=== PATIENT | female | born 1940 | race Caucasian/White ===

== ENCOUNTER 2022-11-23 17:26 | Emergency (ER) | payer MEDICARE, SELFPAY ==
[2022-11-23 17:29] VITALS: BP 143/88; PULSE 68; RESP 18; TEMP 36.7; O2SAT 96; BMI 24.5
--- NOTE | 2022-11-23 17:52 | USR_ITS ---
PROCEDURE INFORMATION: Exam: US Duplex Right Lower Extremity Veins, Limited Exam date and time: 11/23/2022 6:12 PM Age: 82 years old Clinical indication: Pain; Leg, lower; Right; Additional info: Pain and swelling TECHNIQUE: Imaging protocol: Real-time duplex ultrasound of the right extremity with 2-D buenrostro scale, color Doppler flow and spectral waveform analysis including responses to compression and other maneuvers (when performed) with image documentation. Limited exam was focused on the right lower extremity veins. COMPARISON: No relevant prior studies available. FINDINGS: Right deep veins: Unremarkable. The common femoral, femoral, proximal profunda femoral, popliteal, posterior tibial and peroneal veins are patent without thrombus. Normal Doppler waveforms. Normal compressibility and/or augmentation response. Superficial veins: Unremarkable. Saphenofemoral junction is patent without thrombus. Soft tissues: Unremarkable. US/[place] [id number] IMPRESSION: No sonographic evidence of deep vein thrombosis.
[2022-11-23 18:03] LABS: Basophils % 0.5 %; Eosinophils # 0.4 10^3/uL (0.0-0.8); Eosinophils % 4.6 %; Hematocrit 38.9 % (36-47); Lymphocytes # 1.7 10^3/uL (0.8-4.8); Lymphocytes % 22.7 %; Mean Corpuscular HGB Conc 31.6 g/dL (30-55); Mean Corpuscular Hemoglobin 28.5 pg (27-33); Mean Platelet Volume 10.2 fL (7.4-10.4); Monocytes # 0.9 10^3/uL (0.2-0.9); Monocytes % 11.7 %; Neutrophils # 4.57 10^3/uL (1.8-7.7); Neutrophils % 60.2 %; Nucleated Red Blood Cells % 0 %; Platelet Count 260 10^3/cmm (157-399); Red Blood Count 4.32 10^6/uL (3.85-5.65); Red Cell Distribution Width 14.9 % (12.1-15.1); White Blood Count 7.59 10^3/uL (3.29-11.43)
--- NOTE | 2022-11-23 18:16 | CTR_ITS ---
PROCEDURE INFORMATION: Exam: CTA Abdominal Aorta and Bilateral Lower Extremities (Run-off) With Contrast Exam date and time: 11/23/2022 6:48 PM Age: 82 years old Clinical indication: Other: Rle swelling; Prior surgery; Surgery date: 6+ months; Surgery type: Bilat tka; Patient HX: Swelling and pain to rle. Negative venous US of rle today. ; Additional info: Right leg pain TECHNIQUE: Imaging protocol: Computed tomographic angiography of the of the abdominal aorta, pelvis and bilateral lower extremities with contrast. 3D rendering (Not supervised by radiologist): MIP and/or 3D reconstructed images were created by the technologist. Radiation optimization: All CT scans at this facility use at least one of these dose optimization techniques: automated exposure control; mA and/or kV adjustment per patient size (includes targeted exams where dose is matched to clinical indication); or iterative reconstruction. Contrast material: OMNI 350; Contrast volume: 100 ml; Contrast route: INTRAVENOUS (IV); REPORTING DATA: Count of CT and Cardiac NM exams in prior 12 months: This patient has received 0 known CTs and 0 known cardiac nuclear medicine studies in the 12 months prior to the current study. COMPARISON: [place] [id number] 11/23/2022 6:12 PM RADIATION DOSE METRICS: Total DLP (mGy-cm): 2425.61 FINDINGS: Aorta: No aortic aneurysm. No aortic dissection. Celiac trunk and mesenteric arteries: No occlusion or significant stenosis. Renal arteries: No occlusion or significant stenosis. Right iliac arteries: No occlusion or significant stenosis. Right femoral/popliteal arteries: No occlusion or significant stenosis, patient is status post total knee arthroplasty at the level of the knee, there are streak artifacts presenting evaluation of the popliteal artery at this level. Right infrapopliteal arteries: No occlusion or significant stenosis. Below the level of the streak artifact, popliteal artery is visualized and there is three-vessel runoff to the foot. Left iliac arteries: No occlusion or significant stenosis. Left femoral/popliteal arteries: No occlusion or significant stenosis. Patient is status post total knee arthroplasty, at the level of the knee, the streak artifacts prevent complete evaluation of the popliteal artery. However, the streak artifacts, the popliteal artery is visualized. Left infrapopliteal arteries: No occlusion or significant stenosis, there is three-vessel runoff to the foot.. Lungs: The visualized lung bases demonstrate bibasal atelectasis. Liver: No mass. Gallbladder and bile ducts: No calcified stones. No ductal dilation. Pancreas: No mass. No ductal dilation. Spleen: Normal. No splenomegaly. Adrenal glands: No mass. Kidneys and ureters: There are multiple renal cortical cysts, the largest on the right measures 18 mm, the largest on the left measures 9.5 mm. Stomach and bowel: The stomach is not distended. There is an extensive amount of feces in the entire colon indicating constipation. Appendix: No evidence of appendicitis. Urinary bladder: Unremarkable. No mass. Reproductive: Unremarkable as visualized. Intraperitoneal space: No free air. No significant fluid collection. Lymph nodes: No lymphadenopathy. Bones/joints: No acute fracture. No dislocation. Soft tissues: Unremarkable. CT/CT angio abd aorta runof [id number] IMPRESSION: 1. No aortic aneurysm dissection. 2. On the right, patent inflow, patent outflow and three-vessel runoff. 3. On the left, patent inflow, patent outflow and three-vessel runoff.
[2022-11-23 18:20] LABS: Alanine Aminotransferase 12 U/L (0-33); Alkaline Phosphatase 64 U/L (35-105); Anion Gap 12.3 (5-19); Aspartate Amino Transferase 18 U/L (0-32); Blood Urea Nitrogen 24 mg/dL (8-23); Carbon Dioxide 27 mmol/L (22-29); Chloride 106 mmol/L (98-107); Globulin 3.1 g/dL (1.3-4.6); Glucose 95 mg/dL (65-115); Osmolality Calculated 296 mOsm/kg (285-295); Potassium 4.3 mmol/L (3.5-5.1); Sodium 141 mmol/L (136-145); Total Bilirubin 0.3 mg/dL (0.15-1.2); Total Protein 7.1 g/dL (6.6-8.7)
[2022-11-23 18:30] VITALS: BP 150/89; PULSE 64; O2SAT 95
[2022-11-23 18:45] LABS: INR 0.93 (0.8-1.2)
[2022-11-23 18:46] LABS: Partial Thromboplastin Time 26.5 SECONDS (23.9-36.7)
[2022-11-23] MEDS: iohexol 350 mg/mL 500 mL Btl (per mL) IV (19:01)
[2022-11-23 19:30] VITALS: BP 173/88; PULSE 65; O2SAT 95
--- NOTE | 2022-11-23 21:17 | XRR_ITS ---
PROCEDURE INFORMATION: Exam: XR Right Tibia and Fibula Exam date and time: 11/23/2022 9:20 PM Age: 82 years old Clinical indication: Pain; Lower leg; Right TECHNIQUE: Imaging protocol: Radiologic exam of the right tibia and fibula. Views: 2 views. COMPARISON: CT angio abd aorta runof [id number] 11/23/2022 6:48 PM FINDINGS: Bones/joints: Patient is status post total knee arthroplasty. The visualized hardware is intact. There are no fractures or dislocations. Soft tissues: There is soft tissue swelling over the lateral malleolus. XR/XR tibia fibula RT 2V [id number] IMPRESSION: No fractures or dislocations.
[2022-11-23] MEDS: ketorolac 30 mg/mL INJ 15 MG IVP (21:58)
--- NOTE | 2022-11-23 22:04 | W.ED.EXTPRO ---
HPI - Extremity Problem General: Chief complaint: Extremity Injury, Lower Stated complaint: Leg swell Time Seen by Provider: 11/23/22 17:32 History of Present Illness: 82-year-old female presents emergency room with vague complaint of right leg pain within the past 24 hours. Patient described the pain as throbbing sensation with severity of 7 out of 10 mostly on the anterior aspect of the leg. Is any trauma or known injury. Patient with history of neuropathy. Patient also noticed some bruising on the anterior aspect of the right leg as well with some mild swelling. Denies any calf tenderness, shortness of breath, cough, coughing up blood or vomiting blood. No numbness or tingling of the toes. Upon present emergency room patient appeared to be stable with any acute distress. Associated symptoms: Deny chest pain or fever(s) Review of Systems General: Reports: 10 or more systems reviewed and unremarkable except in HPI and below Const: Denies: fever(s), chills, body aches or change in appetite Card: Denies: chest pain, palpitations or irregular heart rhythm Resp: Denies: dyspnea, productive cough, non-productive cough, wheezing, stridor, pain on inspiration or change in phlegm color GI: Denies: abdominal pain, nausea, vomiting, hematemesis, coffee ground emesis or dysphagia Musc: Reports: extremity pain, extremity swelling and other (RIGHT LEG PAIN AND BRUISING) [place]/Lymph: Reports: easy bruising; Denies: enlarged lymph nodes or tender lymph nodes [facility] ED PFSH: Medical History (Updated 11/23/22 @ 21:53 by Gary Mendez MD) Neuropathy Physical Exam Const: COMMON NORMALS: no acute distress, average body habitus, patient oriented x3, no limitations, healthy appearing, alert and well nourished Chest: COMMONS NORMALS: normal inspection of the chest, normal palpation of entire chest wall, normal inspection of the breasts and normal palpation of the breasts Breast/axilla inspection: Yes normal inspection of the breasts BREAST/AXILLA PALPATION: Yes normal palpation of the breasts Resp: COMMON NORMALS: normal respiratory effort, No retractions, No use of accessory muscles, clear to auscultation bilaterally and percussion normal AUSCULTATION: clear to auscultation bilaterally PERCUSSION: percussion normal Cardio: COMMON NORMALS: regular rate PALPATION: normal PMI RATE: regular rate PERIPHERAL PULSES: dorsalis pedis present positive right diminished and positive left 2+ GI: COMMON NORMALS: Normal to inspection, nondistended, normoactive bowel sounds present, Soft to palpation, non-tender, No hepatosplenomegaly present, no masses and no bruits PALPATION: Yes Soft to palpation and Yes No hepatosplenomegaly present Extremity: RIGHT LOWER EXTREMITY: Yes upper leg (TENDERNESS ON THE ANTERIOR ASPECT OF RIGHT LEG. SOME SUPERFICIAL BRUISING ) Right upper leg: Yes inspection (SOME BRUISING NOTED. NO OPEN WOUND OR RASHES ) Neuro: COMMON NORMALS: patient oriented x3 SENSORIUM/ORIENTATION: Yes alert Skin: GENERAL SKIN EXAM: purpura and no scars LESIONS: no lesions RASHES: no rashes TRAUMA: no lacerations or abrasions, no abrasions and no lacerations Course Vital Signs: Vital signs: Vital Signs Temperature 98.1 F 11/23/22 17:29 Pulse Rate 62 11/23/22 22:08 Respiratory Rate 18 11/23/22 17:29 Blood Pressure 171/93 11/23/22 22:08 Pulse Oximetry 95 11/23/22 22:08 Oxygen Delivery Me thod Room Air 11/23/22 19:30 MDM - Extremity (Nontraumatic) Medical Decision Making Patient made comfortable emergency room. Patient had extensive work-up with CBC, CMP ultrasound of lower extremity, CTA with runoff and x-ray done. I discussed all the findings with the patient. Close follow-up PCP recommended for further evaluation and treatment. Differential Diagnosis Likely cellulitis, superficial thrombophlebitis, deep venous thrombosis of upper extremity, lower extremity edema and deep vein thrombosis of lower extremity Lab Data 11/23/22 17:55 11/23/22 17:55 Radiology Impressions Venous Duplex 11/23/22 17:52 IMPRESSION: No sonographic evidence of deep vein thrombosis. Aorta w/Runoff CTA 11/23/22 18:16 IMPRESSION: 1. No aortic aneurysm dissection. 2. On the right, patent inflow, patent outflow and three-vessel runoff. 3. On the left, patent inflow, patent outflow and three-vessel runoff. Tibia/Fibula X-Ray 11/23/22 21:17 IMPRESSION: No fractures or dislocations. Laboratory Results WBC 7.59 10^3/uL (3.29-11.43) 11/23/22 17:55 RBC 4.32 10^6/uL (3.85-5.65) 11/23/22 17:55 Hgb 12.30 g/dL (11.27-16.99) 11/23/22 17:55 Hct 38.9 % (36-47) 11/23/22 17:55 MCV 90.0 fl (85-98) 11/23/22 17:55 MCH 28.5 pg (27-33) 11/23/22 17:55 MCHC 31.6 g/dL (30-55) 11/23/22 17:55 RDW 14.9 % (12.1-15.1) 11/23/22 17:55 Plt Count 260 10^3/cmm (157-399) 11/23/22 17:55 MPV 10.2 fL (7.4-10.4) 11/23/22 17:55 Neut % (Auto) 60.2 % 11/23/22 17:55 Lymph % (Auto) 22.7 % 11/23/22 17:55 [place] % (Auto) 11.7 % 11/23/22 17:55 Eos % (Auto) 4.6 % 11/23/22 17:55 Baso % (Auto) 0.5 % 11/23/22 17:55 Neut # (Auto) 4.57 10^3/uL (1.8-7.7) 11/23/22 17:55 Lymph # (Auto) 1.7 10^3/uL (0.8-4.8) 11/23/22 17:55 [place] # (Auto) 0.9 10^3/uL (0.2-0.9) 11/23/22 17:55 Eos # (Auto) 0.4 10^3/uL (0.0-0.8) 11/23/22 17:55 Baso # (Auto) 0.0 10^3/uL (0.0-0.1) 11/23/22 17:55 Nucleated RBC % (auto) 0 % 11/23/22 17:55 Nucleated RBCs # 0.0 /100WBC 11/23/22 17:55 PT 12.70 SECONDS (12.1-14.9) 11/23/22 17:55 INR 0.93 (0.8-1.2) 11/23/22 17:55 APTT 26.5 SECONDS (23.9-36.7) 11/23/22 17:55 Sodium 141 mmol/L (136-145) 11/23/22 17:55 Potassium 4.3 mmol/L (3.5-5.1) 11/23/22 17:55 Chloride 106 mmol/L (98-107) 11/23/22 17:55 Carbon Dioxide 27 mmol/L (22-29) 11/23/22 17:55 Anion Gap 12.3 (5-19) 11/23/22 17:55 BUN 24 mg/dL (8-23) H 11/23/22 17:55 Creatinine 1.0 mg/dL (0.5-0.9) H 11/23/22 17:55 GFR Calculation Not Reportable 11/23/22 17:55 Glucose 95 mg/dL (65-115) 11/23/22 17:55 Calculated Osmolality 296 mOsm/kg (285-295) H 11/23/22 17:55 Calcium 10.0 mg/dL (8.5-10.5) 11/23/22 17:55 Total Bilirubin 0.3 mg/dL (0.15-1.2) 11/23/22 17:55 AST 18 U/L (0-32) 11/23/22 17:55 ALT 12 U/L (0-33) 11/23/22 17:55 Alkaline Phosphatase 64 U/L (35-105) 11/23/22 17:55 Total Protein 7.1 g/dL (6.6-8.7) 11/23/22 17:55 Albumin 4.0 g/dL (3.5-5.2) 11/23/22 17:55 Globulin 3.1 g/dL (1.3-4.6) 11/23/22 17:55 XR interpretation done by ED provider, pending radiology final review ED provider radiology interpretation(s): NO ACUTE FINDING Discharge Plan Discharge Patient Disposition: Home Clinical Impression: Pain and swelling of right lower extremity Condition: Stable Prescriptions: No Action pregabalin [Lyrica] 150 mg capsule 150 mg PO DAILY Discharge Orders: Discharge ED (Routine); Ordered 11/23/22 Ordered By: Gary Mendez Referrals: Dinora Ritter MD [Primary Care Provider] - Discharge Diet: Advance as tolerated Discharge Activity: Resume usual activity Patient Instructions: Opioid Safety, Pain Management Coding Level of Care Code ED Middleware Engineer for Della Andre
[2022-11-23 22:08] VITALS: BP 171/93; PULSE 62; O2SAT 95
== END 2022-11-23 22:09 | disposition home or self-care (01) ==
PROVIDERS: Emergency Provider Family Medicine; PCP Family Medicine
DX: M79.604 Pain in right leg (principal); M79.89 Other specified soft tissue disorders
CPT/HCPCS: 73590; 75635; 80053; 85025; 85610; 85730; 93971; 96374; 99285; J1885; Q9967

== ENCOUNTER 2023-12-03 10:49 | Emergency (ER) | payer MEDICARE, SELFPAY ==
[2023-12-03 10:50] VITALS: BP 105/64; PULSE 102; RESP 15; TEMP 36.8; O2SAT 90; BMI 25.4
--- NOTE | 2023-12-03 10:54 | XRR_ITS ---
PROCEDURE INFORMATION: Exam: XR Chest Exam date and time: 12/03/2023 11:07 AM Age: 83 years old Clinical indication: Shortness of breath; Additional info: Weakness TECHNIQUE: Imaging protocol: Radiologic exam of the chest. Views: 1 view. COMPARISON: CT angio abd aorta runof [id number] 11/23/2022 6:48 PM FINDINGS: Lungs: Mild bibasilar streaky atelectasis versus scarring. No consolidation. Pleural spaces: No substantial pleural effusion or pneumothorax. Heart/Mediastinum: Unremarkable. No cardiomegaly. Vasculature: Aortic arch atherosclerotic calcification. Bones/joints: Degenerative changes along the spine and shoulders. XR/XR chest 1V portable [id number] IMPRESSION: No acute findings.
--- NOTE | 2023-12-03 10:55 | ECG_ITS ---
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 Measurements Intervals [place] Rate: 101 P: 66 WA: 171 QRS: 0 QRSD: 94 T: 44 QT: 330 QTc: 429 Interpretive Statements SINUS TACHYCARDIA POSSIBLE LEFT ATRIAL ENLARGEMENT [-0.1mV P-WAVE IN V1/V2] LOW QRS VOLTAGE IN PRECORDIAL LEADS [QRS DEFLECTION < 1.0 mV IN CHEST LEADS] PATTERN CONSISTENT WITH PULMONARY DISEASE INCOMPLETE RIGHT BUNDLE BRANCH BLOCK [90+ ms QRS DURATION, TERMINAL R IN V1/V2, 40+ ms S IN I/aVL/V4/V5/V6] Heavy baseline artifacts; Need to repeat the study. No previous ECG available for comparison Electronically Signed On 12-03-2023 23:03:30 CDT by Moy King M.D. [email or web address]
--- NOTE | 2023-12-03 11:00 | ED_ITS ---
HPI - General Adult 2 General: Chief complaint: Weakness Stated complaint: weakness Time Seen by Provider: 12/03/23 10:50 Source: patient and EMS Mode of arrival: EMS Limitations: no limitations History of Present Illness: 83-year-old female states that since Fri she has been feeling generally weak she has had fevers she states up to 100. States she is just felt very fatigued and had no energy she had some nausea with 1 episode of vomiting on Friday states that it improved. She denies any cough denies any pain anywhere she states she went to her PCPs office today and was hypotensive there she received a liter of fluids and route blood pressure here is improved denies any headache. Associated symptoms: Reports malaise, nausea and vomiting; Deny chest pain, dyspnea, headache(s) or rash Related Data Home Medications Medication Instructions Recorded Confirmed pregabalin 150 mg capsule (Lyrica) 150 mg PO DAILY 11/23/22 12/03/23 calcium carbonate 600 mg-vitamin 1 tab PO DAILY 12/03/23 12/03/23 D3 5 mcg (200 unit) tablet denosumab 60 mg/mL subcutaneous 60 mg SUBCUT Q6M 12/03/23 12/03/23 syringe (Prolia) ibuprofen 200 mg tablet (Advil) 400 mg PO Q6H PRN pain or fever 12/03/23 12/03/23 omega-3 fatty acids 1,000 mg PO DAILY 12/03/23 12/03/23 Allergies Allergy/AdvReac Type Severity Reaction Status Date / Time No Known Allergies Allergy Unverified 12/03/23 09:36 Review of Systems 2 Const: Reports: fever(s), chills, fatigue and malaise; Denies: body aches or change in appetite ENMT: Denies: throat pain or dental pain Card: Denies: chest pain Resp: Denies: dyspnea GI: Reports: nausea and vomiting; Denies: abdominal pain or diarrhea : Denies: dysuria Musc: Denies: neck pain or back pain Skin/Breast: Denies: rash Neuro: Denies: headache(s) PFSH ED 2 PFSH: Medical History (Updated 12/03/23 @ 13:44 by Brionna Elias MD) Neuropathy Social History Smoking and tobacco/nicotine status: never used tobacco/nicotine Physical Exam 2 Const: COMMON NORMALS: patient oriented x3 HENMT: COMMON NORMALS: normocephalic and atraumatic HEAD & SCALP: n ormocephalic and atraumatic Eye: COMMON NORMALS: Equal, round and reactive pupils present and EOMs intact bilaterally PUPIL: Yes Equal, round and reactive pupils present Neck/C-Spine: COMMON NORMALS: full ROM and supple Chest: COMMONS NORMALS: normal inspection of the chest and normal palpation of entire chest wall Resp: COMMON NORMALS: normal respiratory effort, No retractions, No use of accessory muscles and clear to auscultation bilaterally AUSCULTATION: clear to auscultation bilaterally Cardio: COMMON NORMALS: regular rate, regular rhythm and No murmurs present (Cardio) RATE: regular rate RHYTHM: regular rhythm GI: COMMON NORMALS: Normal to inspection, nondistended, normoactive bowel sounds present, Soft to palpation, non-tender and no masses PALPATION: Yes Soft to palpation Extremity: COMMON NORMALS: normal to inspection and full ROM Neuro: COMMON NORMALS: patient oriented x3, moves all extremities and no focal motor deficits Psych: COMMON NORMALS: mental status grossly normal, Normal thought process present and cooperative THOUGHT PROCESS: Normal thought process present Skin: COMMON NORMALS: no rashes or lesions noted and no wounds GENERAL SKIN EXAM: no rashes or lesions noted Course 2 Vital Signs: Vital signs: Vital Signs Temperature 98.3 F 12/03/23 10:50 Pulse Rate 94 12/03/23 13:00 Respiratory Rate 29 H 12/03/23 12:00 Blood Pressure 93/59 12/03/23 13:00 Pulse Oximetry 94 12/03/23 13:00 Oxygen Delivery Me thod Room Air 12/03/23 10:50 MDM - General Adult Medical Decision Making Patient presents here with an infected kidney stone with sepsis she is given a sepsis fluid bolus her blood pressures improved she started on antibiotics I did speak to urology at [facility] will transfer their ER to ER for higher level of care for urology. Medical Records I reviewed the patient's medical records. Lab Data I reviewed the patient's lab results. 12/03/23 11:04 12/03/23 11:04 Radiology Impressions Chest X-Ray 12/03/23 10:54 IMPRESSION: No acute findings. Abdomen/Pelvis CT 12/03/23 12:17 IMPRESSION: 1. Obstructing RIGHT proximal UPJ and RIGHT proximal ureteral calculi measuring 6 to 7 mm. 2. Associated urothelial enhancement involving the RIGHT renal pelvis and proximal ureter with induration and inflammatory stranding. Moderate RIGHT hydronephrosis. Findings compatible with obstruction and pyelonephritis. 3. No hydronephrosis in the LEFT kidney. 4. Small esophageal hiatal hernia. 5. No other acute findings. Notified Brionna Elias MD at 12/03/2023 1:04 PM. Laboratory Results WBC 14.30 10^3/uL (3.29-11.43) H 12/03/23 11:04 RBC 4.14 10^6/uL (3.85-5.65) 12/03/23 11:04 Hgb 11.90 g/dL (11.27-16.99) 12/03/23 11:04 Hct 37.1 % (36-47) 12/03/23 11:04 MCV 89.6 fl (85-98) 12/03/23 11:04 MCH 28.7 pg (27-33) 12/03/23 11:04 MCHC 32.1 g/dL (30-55) 12/03/23 11:04 RDW 15.3 % (12.1-15.1) H 12/03/23 11:04 Plt Count 144 10^3/cmm (157-399) L 12/03/23 11:04 MPV 10.5 fL (7.4-10.4) H 12/03/23 11:04 Lymph % (Auto) Not Reportable 12/03/23 11:04 [place] % (Auto) Not Reportable 12/03/23 11:04 Lymph # (Auto) Not Reportable 12/03/23 11:04 [place] # (Auto) Not Reportable 12/03/23 11:04 Total Counted 100 (0-100) 12/03/23 11:04 Atypical Lymphs % 1.0 % (0-5) 12/03/23 11:04 Absolute Neutrophils 12.3 10^3/cmm (1.4-6.5) H 12/03/23 11:04 Segmented Neutrophils 59 % 12/03/23 11:04 Band Neutrophils 27.0 % 12/03/23 11:04 Absolute Lymphocytes 0.6 10^3/cmm (1.2-3.4) L 12/03/23 11:04 Lymphocytes (Manual) 3 % 12/03/23 11:04 Monocytes (Manual) 1.0 % 12/03/23 11:04 Absolute Monocytes 0.1 10^3/cmm (0.1-0.6) 12/03/23 11:04 Eosinophils (Manual) 0 % 12/03/23 11:04 Absolute Eosinophils 0.0 10^3/cmm (0.0-0.7) 12/03/23 11:04 Basophils (Manual) 0.0 % 12/03/23 11:04 Absolute Basophils 0.0 10^3/cmm (0.0-0.2) 12/03/23 11:04 Metamyelocytes 6.0 % 12/03/23 11:04 Myelocytes 3.0 % 12/03/23 11:04 Platelet Estimate Normal (Normal) 12/03/23 11:04 PT 14.10 SECONDS (12.1-14.9) 12/03/23 11:04 INR 1.05 (0.8-1.2) 12/03/23 11:04 Sodium 138 mmol/L (136-145) 12/03/23 11:04 Potassium 3.7 mmol/L (3.5-5.1) 12/03/23 11:04 Chloride 100 mmol/L (98-107) 12/03/23 11:04 Carbon Dioxide 24 mmol/L (22-29) 12/03/23 11:04 Anion Gap 17.7 (5-19) 12/03/23 11:04 BUN 29 mg/dL (8-23) H 12/03/23 11:04 Creatinine 1.5 mg/dL (0.5-0.9) H 12/03/23 11:04 GFR Calculation Not Reportable 12/03/23 11:04 Glucose 129 mg/dL (65-115) H 12/03/23 11:04 POC Glucose 122 mg/dL (70-110) H 12/03/23 11:15 Calculated Osmolality 294 mOsm/kg (285-295) 12/03/23 11:04 Lactic Acid 4.9 mmol/L (0.5-2.2) H* 12/03/23 11:04 Calcium 8.9 mg/dL (8.5-10.5) 12/03/23 11:04 Total Bilirubin 0.3 mg/dL (0.15-1.2) 12/03/23 11:04 AST 25 U/L (0-32) 12/03/23 11:04 ALT 17 U/L (0-33) 12/03/23 11:04 Alkaline Phosphatase 140 U/L (35-105) H 12/03/23 11:04 Total Protein 6.0 g/dL (6.6-8.7) L 12/03/23 11:04 Albumin 3.3 g/dL (3.5-5.2) L 12/03/23 11:04 Globulin 2.7 g/dL (1.3-4.6) 12/03/23 11:04 Lipase 43 U/L (13-60) 12/03/23 11:04 TSH 0.82 uIU/mL (0.27-4.20) 12/03/23 11:04 Urine Color Yellow (Yellow) 12/03/23 12:14 Urine Appearance Cloudy (CLEAR) A 12/03/23 12:14 Urine pH 5.5 (5-7) 12/03/23 12:14 Ur Specific [place] 1.011 (1.005-1.030) 12/03/23 12:14 Urine Protein 1+ (Negative) A 12/03/23 12:14 Urine Glucose (UA) Negative (Normal) 12/03/23 12:14 Urine Ketones Negative (Negative) 12/03/23 12:14 Urine Blood 3+ (Negative) A 12/03/23 12:14 Urine Nitrate Positive (Negative) A 12/03/23 12:14 Urine Bilirubin Negative (Negative) 12/03/23 12:14 Urine Urobilinogen 1.0 mg/dL (Negative) 12/03/23 12:14 Ur Leukocyte Esterase 3+ (Negative) A 12/03/23 12:14 Urine RBC 3-5 /hpf (0-2) 12/03/23 12:14 Urine WBC >100 /hpf (0-5) H 12/03/23 12:14 Ur Squamous Epith Cells 0-5 /hpf (0-5) 12/03/23 12:14 Amorphous Sediment Not Reportable 12/03/23 12:14 Urine Bacteria 4+ /hpf (NONE) H 12/03/23 12:14 Hyaline Casts 5.36 /lpf 12/03/23 12:14 Coronavirus (PCR) Negative (Negative) 12/03/23 11:19 Influenza A (PCR) Negative (Negative) 12/03/23 11:19 Influenza Type B (PCR) Negative (Negative) 12/03/23 11:19 RSV (PCR) Negative (Negative) 12/03/23 11:19 All radiology interpretation(s) finalized by discharge EKG Data EKG 1: I personally reviewed and interpreted this EKG as follows: EKG interpretation date: 12/03/23 EKG interpretation time: 10:56 Interpretation: sinus tach hr [address] elevation qrs 94 qtc 388 Computer generated interpretation: Chest X-Ray 12/03/23 10:54 IMPRESSION: No acute findings. Abdomen/Pelvis CT 12/03/23 12:17 IMPRESSION: 1. Obstructing RIGHT proximal UPJ and RIGHT proximal ureteral calculi measuring 6 to 7 mm. 2. Associated urothelial enhancement involving the RIGHT renal pelvis and proximal ureter with induration and inflammatory stranding. Moderate RIGHT hydronephrosis. Findings compatible with obstruction and pyelonephritis. 3. No hydronephrosis in the LEFT kidney. 4. Small esophageal hiatal hernia. 5. No other acute findings. Notified Brionna Elias MD at 12/03/2023 1:04 PM. Critical Care Time 2 Critical Care Time: Critical Care Time: Yes Total Critical Care Time: 40 Attestation: The high probability of a clinically significant, sudden or life threatening deterioration of the patient's gu system(s) required my full and direct attention, intervention and personal management. The critical care time is as shown. This time is in addition to time spent performing any reported procedures but includes the following: [x] Data and vital sign review and interpretation [x] Patient assessment, examination and intervention [x] Documentation [x] Medication orders and management Discharge Plan Discharge Patient Disposition: Admitted As Inpatient Clinical Impression: Acute cystitis, Sepsis, Kidney stone Condition: Stable Prescriptions: No Action pregabalin [Lyrica] 150 mg capsule 150 mg PO DAILY Calcium + D 600 mg-5 mcg (200 unit) Tablet 1 tab PO DAILY Fish Oil Capsule 1,000 mg PO DAILY Prolia 60 mg/mL Syringe 60 mg SUBCUT Q6M Advil 200 mg Tablet 400 mg PO Q6H PRN (Reason: pain or fever ) Coding Level of Care Code ED Pharmacy Technician Infusion for Chg Fwd
[2023-12-03 11:18] LABS: Glucose Point of Care 122 mg/dL (70-110)
[2023-12-03 11:23] LABS: Hematocrit 37.1 % (36-47); Mean Corpuscular HGB Conc 32.1 g/dL (30-55); Mean Corpuscular Hemoglobin 28.7 pg (27-33); Mean Corpuscular Volume 89.6 fl (85-98); Mean Platelet Volume 10.5 fL (7.4-10.4); Platelet Count 144 10^3/cmm (157-399); Red Blood Count 4.14 10^6/uL (3.85-5.65); Red Cell Distribution Width 15.3 % (12.1-15.1)
[2023-12-03] MEDS: sodium chloride 0.9% 1,000 ML 999 ML IV ×2 (11:24→12:27)
[2023-12-03 11:39] LABS: INR 1.05 (0.8-1.2)
[2023-12-03 11:46] LABS: Slide Review Slide Review Perform
[2023-12-03 11:52] LABS: Lactic Sepsis W/Reflex 4.9 mmol/L (0.5-2.2)
[2023-12-03 11:53] LABS: Absolute Segmented Neutrophil 8.4 10/cmm (1.6-7.1); Alanine Aminotransferase 17 U/L (0-33); Albumin Level 3.3 g/dL (3.5-5.2); Alkaline Phosphatase 140 U/L (35-105); Anion Gap 17.7 (5-19); Aspartate Amino Transferase 25 U/L (0-32); Band Neutrophils Absolute 3.9 10^3/cmm (0.0-1.2); Blood Urea Nitrogen 29 mg/dL (8-23); Calcium 8.9 mg/dL (8.5-10.5); Carbon Dioxide 24 mmol/L (22-29); Chloride 100 mmol/L (98-107); Creatinine Clr Calc Pharmacy 23.0174; Eosinophils 0 %; Globulin 2.7 g/dL (1.3-4.6); Glucose 129 mg/dL (65-115); Lipase 43 U/L (13-60); Lymphocytes 3 %; Lymphocytes Absolute 0.6 10^3/cmm (1.2-3.4); Monocytes Absolute 0.1 10^3/cmm (0.1-0.6); Osmolality Calculated 294 mOsm/kg (285-295); Potassium 3.7 mmol/L (3.5-5.1); Segmented Neutrophils 59 %; Sodium 138 mmol/L (136-145); Thyroid Stimulating Hormone 0.82 uIU/mL (0.27-4.20); Total Bilirubin 0.3 mg/dL (0.15-1.2); Total Cells Counted 100 (0-100)
[2023-12-03 11:54] LABS: Absolute Neutrophil 12.3 10^3/cmm (1.4-6.5); Platelet Estimate Normal (Normal)
[2023-12-03 12:00] VITALS: BP 105/54; PULSE 96; RESP 29; O2SAT 97
[2023-12-03 12:07] LABS: Covid PCR NEGATIVE (Negative); Influenza A NEGATIVE (Negative); Influenza B NEGATIVE (Negative); Respiratory Syncytial Virus Ce NEGATIVE (Negative)
--- NOTE | 2023-12-03 12:17 | CT_ITS ---
WS: [id number] CT ABDOMEN PELVIS TECHNIQUE: Contrast-enhanced CT of the abdomen and pelvis with coronal and sagittal reformatted image s. CLINICAL INFORMATION: fever COMPARISON: CTA runoff 11/23/2022 DLP: 655.[address] scans at [facility] use at least one of these dose optimization techniques: automated e xposure control; mA and/or kV adjustment per patient size (includes targeted exams where dose is matc hed to clinical indication); or iterative reconstruction. FINDINGS: Diffuse fatty infiltration of the liver. Normal portal vein and splenic vein. Small esophageal hiatal hernia. Subsegmental atelectasis in the lung bases. Small LEFT adrenal nodule likely adenoma measuri ng 9 mm unchanged since 2022. Normal spleen. Normal portal vein and splenic vein. Bilateral renal cys ts. Obstructing RIGHT proximal ureteral calculi are new since 11/23/2022. Moderate dilatation RIGHT renal pelvis with urothelial enhancement. Moderate RIGHT hydronephrosis. RIGHT UPJ and proximal ureteral ca lculi measure 6.5 mm and 7.1 mm respectively. Enhancement involving the RIGHT renal pelvis. Induratio n about the RIGHT kidney and RIGHT renal pelvis. Recommend correlation for pyelonephritis. No hydrone phrosis in the LEFT kidney. Normal sigmoid colon. A few colonic diverticuli. No evidence of acute diverticulitis. Normal caliber abdominal aorta. Celiac and SMA are patent. Calcified uterine fibroids. Anterolisthesis L5 on S1 during 1.6 cm with chronic spondylolysis similar to previous. CT/CT abdomen pelvis w con* [id number] IMPRESSION: 1. Obstructing RIGHT proximal UPJ and RIGHT proximal ureteral calculi measurin g 6 to 7 mm. 2. Associated urothelial enhancement involving the RIGHT renal pelvis and prox imal ureter with induration and inflammatory stranding. Moderate RIGHT hydronep hrosis. Findings compatible with obstruction and pyelonephritis. 3. No hydronephrosis in the LEFT kidney. 4. Small esophageal hiatal hernia. 5. No other acute findings. Notified Brionna Elias MD at 12/03/2023 1:04 PM.
[2023-12-03] MEDS: piperacillin-tazobactam 3.375 GM in sodium chloride 0.9% (plus) 50 ML IV (12:27)
[2023-12-03 12:30] VITALS: BP 113/77; PULSE 97; O2SAT 96
[2023-12-03 12:35] LABS: Bilirubin Urine Negative (Negative); Blood Urine 3+ (Negative); Glucose Urine UA Negative (Normal); Ketones Urine Negative (Negative); Leukocyte Esterase Urine 3+ (Negative); Nitrate Urine Positive (Negative); Protein Urine 1+ (Negative); Specific Gravity, Urine 1.011 (1.005-1.030); Urine Appearance Cloudy (CLEAR); Urine Color Yellow (Yellow); pH Urine 5.5 (5-7)
[2023-12-03 12:40] LABS: Add Urine Microscopic? YES; Bacteria Urine 4+ /hpf; Hyaline Casts Urine 5.36 /lpf; Squamous Epithelial Cell Urine 0-5 /hpf (0-5); WBC Urine >100 /hpf (0-5)
[2023-12-03 12:43] LABS: Add Urine Culture? Yes
[2023-12-03] MEDS: iohexol 350 mg/mL 500 mL Btl (per mL) IV (12:44)
[2023-12-03 13:00] VITALS: BP 93/59; PULSE 94; O2SAT 94
[2023-12-03 13:05] LABS: Reflex Lactate Order REFLEX LACTIC ORDERD
[2023-12-03] MEDS: vancomycin 1,000 MG in sodium chloride 0.9% 250 ML 250 MG IV (13:27)
[2023-12-03 14:34] LABS: Lactic Acid level (Lactate) 3.3 mmol/L (0.5-2.2)
[2023-12-03 15:34] VITALS: BP 121/63; PULSE 85; O2SAT 94
== END 2023-12-03 15:37 | disposition admitted as inpatient to this hospital (09) ==
PROVIDERS: Emergency Provider Emergency Medicine
DX: N30.00 Acute cystitis without hematuria (principal); A41.9 Sepsis, unspecified organism; N20.0 Calculus of kidney; R00.0 Tachycardia, unspecified
CPT/HCPCS: 0241U; 36415; 36416; 71045; 74177; 80053; 81001; 82962; 83605; 83690; 84443; 85007; 85025; 85610; 87040; 87077; 87086; 87186; 93005; 96365; 96366; 96367; 99285; J2543; J3370; J7030; J7050